=== PATIENT | female | born 1970 | race Caucasian/White ===

== ENCOUNTER 2018-08-12 21:30 | Emergency (ER) | payer MEDICAID ==
[~2018-08-12] VITALS: Ht 165.1 cm; Wt 92.7 kg
[~2018-08-12 21:30] MED LIST: AMLO-150 PO; AMLO5TAB4 PO; APIX5TAB PO; IBUP-1222 PO
[2018-08-12 21:31] VITALS: BP 139/84
--- NOTE | 2018-08-12 21:42 | NUR ---
PT REPORTS NECK PAIN NAUSEA X 3 DAYS AND GETTING WORSE
[2018-08-12] MEDS ORDERED: METHOCARBAMOL 750 MG TABLET ONE (21:56)
[2018-08-12] MEDS ORDERED: METHOCARBAMOL 750 MG TABLET PO ONE (22:00)
[2018-08-12 22:10] LABS: BASOPHILS # (AUTO) 0.03 x10^3/uL (0-0.1); BASOPHILS % (AUTO) 1 % (0-1); EOSINOPHILS # (AUTO) 0.05 x10^3/uL (0-0.4); EOSINOPHILS % (AUTO) 1 % (1-7); LYMPHOCYTES # (AUTO) 1.51 x10^3/uL (1-3.4); LYMPHOCYTES % (AUTO) 22 % (22-44); MD NO; MEAN CORPUSCULAR HEMOGLOBIN 31.5 pg (27.0-34.8); MEAN CORPUSCULAR HGB CONC 34.7 g/dL (32.4-35.8); MEAN CORPUSCULAR VOLUME 90.9 fL (80-100); MEAN PLATELET VOLUME 8.4 fL (7.4-10.4); MONOCYTES # (AUTO) 0.38 x10^3/uL (0.2-0.8); MONOCYTES % (AUTO) 6 % (2-9); NEUTROPHILS # (AUTO) 4.92 x10^3/uL (1.8-6.8); NEUTROPHILS % (AUTO) 72 % (42-75); PLATELET COUNT 270 x10^3/uL (130-400); RED BLOOD COUNT 4.53 x10^6/uL (3.82-5.3); RED CELL DISTRIBUTION WIDTH 13.7 % (9.6-15.2)
[2018-08-12 22:23] LABS: ALANINE AMINOTRANSFERASE 36 U/L (12-78); ALBUMIN 3.4 g/dL (3.4-5.0); ANION GAP 6 mmol/L (5-15); CALCIUM 8.7 mg/dL (8.5-10.1); CHLORIDE 109 mmol/L (98-107); CREATININE 0.77 mg/dL (0.55-1.02)
[2018-08-12 22:25] LABS: ALKALINE PHOSPHATASE 59 U/L (45-117); BILIRUBIN,TOTAL 0.2 mg/dL (0.2-1.0); TOTAL PROTEIN 6.8 g/dL (6.4-8.2)
== END 2018-08-12 22:49 | disposition home or self-care (01) ==
LOC: ED 21:59
DX: S16.1XXA Strain of muscle, fascia and tendon at neck level, initial encounter (principal); R19.7 Diarrhea, unspecified; E87.6 Hypokalemia; I10 Essential (primary) hypertension; G43.909 Migraine, unspecified, not intractable, without status migrainosus; X58.XXXA Exposure to other specified factors, initial encounter; Y93.89 Activity, other specified; Y92.89 Other specified places as the place of occurrence of the external cause; Y99.8 Other external cause status
CPT/HCPCS: 36415; 80053; 83690; 85025; 99283

== ENCOUNTER 2020-11-24 08:17 | Emergency (ER) | payer MEDICAID ==
[~2020-11-24] VITALS: Ht 167.6 cm; Wt 93.9 kg
[2020-11-24 08:35] VITALS: BP 143/77
--- NOTE | 2020-11-24 08:51 | NUR ---
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
== END 2020-11-24 09:10 | disposition home or self-care (01) ==
LOC: ED 09:04
DX: I10 Essential (primary) hypertension (principal); Z76.0 Encounter for issue of repeat prescription; G89.29 Other chronic pain; G43.909 Migraine, unspecified, not intractable, without status migrainosus; Z86.718 Personal history of other venous thrombosis and embolism
CPT/HCPCS: 99281

== ENCOUNTER 2020-12-24 08:07 | Emergency (ER) | payer SELFPAY ==
[~2020-12-24] VITALS: Ht 167.6 cm; Wt 93.4 kg
[2020-12-24 08:21] VITALS: BP 134/79
--- NOTE | 2020-12-24 09:16 | NUR ---
TASK RN: PT SITTING ON EOB WAITING FOR ERP CONSULT, NAD, NO NEEDS AT THIS TIME, AT BS, CALL LIGHT WITHIN REACH.
--- NOTE | 2020-12-24 09:39 | NUR ---
Patient given discharge instructions and rx, they have confirmed that they understand the instructions. Patient ambulatory with steady gait.
== END 2020-12-24 09:41 | disposition home or self-care (01) ==
LOC: ED 08:23
DX: I10 Essential (primary) hypertension (principal); Z76.0 Encounter for issue of repeat prescription; Z86.718 Personal history of other venous thrombosis and embolism; Z90.89 Acquired absence of other organs
CPT/HCPCS: 99281

== ENCOUNTER 2021-01-24 10:32 | Emergency (ER) | payer SELFPAY ==
[~2021-01-24] VITALS: Ht 167.6 cm; Wt 95.1 kg
[2021-01-24] MEDS ORDERED: PARO40TA PO (10:55)
[2021-01-24] MEDS ORDERED: iron (10:55)
[2021-01-24] MEDS ORDERED: ASPI-963 PO (10:55)
--- NOTE | 2021-01-24 11:05 | NUR ---
PT STATES SHE'S OUT OF AMLODIPINE RX, PENDING APPOINTMENT TO ESTABLISH CARE WITH PCP.
[2021-01-24 11:20] VITALS: BP 124/74
== END 2021-01-24 11:22 | disposition home or self-care (01) ==
LOC: ED 11:10
DX: I10 Essential (primary) hypertension (principal); Z76.0 Encounter for issue of repeat prescription; G43.909 Migraine, unspecified, not intractable, without status migrainosus; Z86.718 Personal history of other venous thrombosis and embolism
CPT/HCPCS: 99281

== ENCOUNTER 2021-02-24 09:30 | Emergency (ER) | payer SELFPAY ==
[~2021-02-24] VITALS: Ht 167.6 cm; Wt 95.3 kg
[~2021-02-24 09:30] MED LIST changes: +ASPI-963 PO; +PARO40TA PO; +iron
[2021-02-24 09:35] VITALS: BP 130/76
--- NOTE | 2021-02-24 10:17 | NUR ---
Patient given discharge instructions and Rx, they have confirmed that they understand the instructions. Patient ambulatory with steady gait. NAD, all questions answered appropriately, denies additional needs at this time. No personal belongings left in room after discharge.
== END 2021-02-24 10:35 | disposition home or self-care (01) ==
LOC: ED 10:05
DX: I10 Essential (primary) hypertension (principal); Z76.0 Encounter for issue of repeat prescription; Z86.718 Personal history of other venous thrombosis and embolism; Z90.89 Acquired absence of other organs
CPT/HCPCS: 99281